=== PATIENT | male | born 1995 | race Caucasian/White ===

== ENCOUNTER 2017-05-09 14:50 | Emergency (ER) | payer OTHER ==
[~2017-05-09] VITALS: Ht 182.9 cm; Wt 93.4 kg
--- NOTE | 2017-05-09 15:57 | REP ---
CT Head without contrast HISTORY: Injury COMPARISON: None There is no intraparenchymal hemorrhage, acute infarct, mass or midline shift. The ventricular system is normal in appearance. There is no extra cerebral collection. There is no fracture. The visualized sinuses are clear. IMPRESSION: There is no intracranial lesion. Signed by Boni Odell MD 05/09/2017 03:48 P
--- NOTE | 2017-05-09 16:00 | REP ---
CT cervical spine without contrast HISTORY: Injury COMPARISON: None There is no acute fracture or subluxation. There is no disc bulge or herniation. The spinal canal and neural foramina are patent. The intervertebral discs and vertebral bodies are normal in height. IMPRESSION: There is no acute fracture or subluxation. Signed by Boni Odell MD 05/09/2017 03:51 P
[2017-05-09 16:12] VITALS: BP 115/73
== END 2017-05-09 16:16 | disposition home or self-care (01) ==
LOC: M ED 14:50
DX: S06.0X0A Concussion without loss of consciousness, initial encounter (principal); W01.10XA Fall on same level from slipping, tripping and stumbling with subsequent striking against unspecified object, initial encounter; Y92.830 Public park as the place of occurrence of the external cause; Y93.69 Activity, other involving other sports and athletics played as a team or group; Y99.8 Other external cause status

== ENCOUNTER 2019-02-04 17:22 | Emergency (ER) | payer OTHER ==
[~2019-02-04] VITALS: Ht 182.9 cm; Wt 91.9 kg
[2019-02-04] MEDS ORDERED: NAPR250T4 PO (17:36)
[2019-02-04] MEDS ORDERED: KETOROLAC 60 MG/2 ML VIAL (J1885) IM ONE (18:00)
--- NOTE | 2019-02-04 18:30 | REP ---
Lumbar spine five views: Vertebral body heights, interspacing alignment are normal. There are no compression deformities. There is no spondylolysis. There is no spondylolisthesis. The pedicles and facets are unremarkable. The sacroiliac articulations are unremarkable. Impression: Negative lumbar spine. Electronically Signed by Ajay Figueredo MD 02/04/2019 06:21 P
[2019-02-04] MEDS ORDERED: ZANA4TAB PO (18:41)
[2019-02-04 18:46] VITALS: BP 103/55
== END 2019-02-04 18:49 | disposition home or self-care (01) ==
LOC: M ED 17:22
DX: M54.5 Low back pain (principal)
CPT/HCPCS: 72110; 96372; 99284; J1885